=== PATIENT | female | born 1970 | race African-American/Black ===

== ENCOUNTER → 2019-10-22 | Outpatient (CLI) | payer MEDICARE, OTHER ==
[~2019-10-22] MED LIST: AMILORIDE HCL5 MG PO; ASPIRIN81 MG PO; ATORVASTATIN CA10 MG PO; BIOTIN800 MCG PO; CALCIUM CARBON500 MG PO; CLONIDINE HCL0.1 MG PO; FLUCONAZOLE100 MG PO; FOLIC ACID PO; GAS RELIEF80 MG PO; LINZESS290 MCG PO; MECLIZINE HCL12.5 MG PO; METHOTREXATE2.5 MG PO; METOCLOPRAM5 MG/5 ML PO; MIRALAX17 GM PO; MULTIVITAMINS1 EAC7 PO; NAPROXEN500 M1 PO; NEXIUM20 MG PO; PLAQUENIL200 MG PO; POTASSIUM CHLO10 ME1 PO; PREDNISONE20 MG PO; PROBIOTIC & AC1 EACH PO; PROMETHAZINE HC25 M1 PO; ROBAXIN-750750 MG PO; SINGULAIR10 MG PO; SLOW-MAG64 MG PO; SPIRONOLACTONE25 MG PO; STOOL SOFTENER50 MG PO; VITAMIN B 12 PO
--- NOTE | 2019-10-22 11:48 | Diagnostic Imaging Report ---
EXAM: CHEST 2 VIEWS DATE: 10/22/2019 11:24 AM INDICATION: Gallstone, preoperative evaluation COMPARISON: None FINDINGS: Implanted cardiac monitoring devices noted overlying the left lower thorax. The trachea is midline. The lungs are symmetrically expanded without evidence for large focal consolidation, pneumothorax, or significant pleural effusion. The cardiomediastinal silhouette and pulmonary vasculature are within normal limits. No acute osseous abnormality is identified. The surrounding soft tissues are unremarkable. IMPRESSION: No acute cardiopulmonary process identified. Signed by: Dr. Wale Mendes MD on 10/22/2019 11:45 AM
== END ==
LOC: RAD 05:00 → EDSTATUS 10-27 10:00 → EDBD 10-27 10:00
PROVIDERS: ATTEND Surgery
DX: Z01.818 Encounter for other preprocedural examination (principal); K81.9 Cholecystitis, unspecified; Z11.59 Encounter for screening for other viral diseases
CPT/HCPCS: 71046; U0002

== ENCOUNTER → 2019-12-08 | Day surgery (SDC) | payer MEDICARE ==
[~2019-12-08] MED LIST changes: +BUPIVACAINE 0.25% 30ML SDV INJ ONE; +DEXAMETHASONE SOD PHOS INJ 4 MG/ML VIAL ONE; +EPHEDRINE SULFATE INJ 50 MG/ML VIAL ONE; +FENTANYL CITRATE/PF 100MCG/2 ML INJ ONE; +GLYCOPYRROLATE INJ 0.2 MG/ML VIAL ONE; +HYDRALAZINE HCL 20 MG/ML VIAL ONE; +HYDROMORPHONE 1MG/1ML INJ ONE; +KETOROLAC TROMETHAMINE 30 MG/ML VIAL ONE; +LEVOFLOXACIN 500MG/D5W 100ML 100 ML IV ONE; +LIDOCAINE HCL 2% JELLY 5 ML TUBE ONE; +LIDOCAINE HCL 2% LOCAL INJ 5 ML SDV VIAL INJ ONE; +MIDAZOLAM HCL 2 MG/2 ML VIAL ONE; +NEOSTIGMINE 1 MG/ML 10ML VIAL ONE; +ONDANSETRON HCL INJ 2MG/ML 2ML 2 MG/ML VIAL ONE; +PROPOFOL IV EMULSION 10 MG/ML 20 ML VIAL ONE; +ROCURONIUM BROMIDE 10 MG/ML 5ML VIAL IV ONE; +SEVOFLURANE INHAL SOLN 250 ML PEN BTL ONE
[2019-12-08 09:05] LABS: BASOPHILS % 0.5 % (0.0-1.0); EOSINOPHILS # (AUTO) 0.2 (0.0-0.4); EOSINOPHILS % 1.7 % (0.0-6.0); HEMATOCRIT 40.7 % (34.2-44.1); HEMOGLOBIN 13.2 g/dL (12.0-16.0); LYMPHOCYTES # (AUTO) 3.2 (1.0-3.2); LYMPHOCYTES % 36.2 % (18.0-39.1); MEAN CORPUSCULAR HEMOGLOBIN 28.9 pg (28-32); MEAN CORPUSCULAR HGB CONC 32.4 g/dL (31-35); MEAN CORPUSCULAR VOLUME 89.3 fL (81-99); MONOCYTES # (AUTO) 0.6 (0.2-0.8); MONOCYTES % 6.5 % (4.4-11.3); NEUTROPHILS # (AUTO) 4.8 (2.1-6.9); NEUTROPHILS % 54.8 % (38.7-80.0); PLATELET COUNT 418 x10e3/uL (140-360); RED BLOOD COUNT 4.56 x10e6/uL (3.6-5.1); RED CELL DISTRIBUTION WIDTH 13.1 % (11.7-14.4)
[2019-12-08 09:22] LABS: ANION GAP 11.9 mmol/L (8-16); BLOOD UREA NITROGEN 14 mg/dL (7-26); BUN/CREATININE RATIO 17 (6-25); CALCIUM 9.6 mg/dL (8.4-10.2); CARBON DIOXIDE 30 mmol/L (22-29); CHLORIDE 104 mmol/L (98-107); CREATININE, SERUM 0.81 mg/dL (0.57-1.11); EST GLOMERULAR FILTRATION RATE > 60 ML/MIN (60-); GLUCOSE 91 mg/dL (74-118); POTASSIUM 3.9 mmol/L (3.5-5.1); SODIUM 142 mmol/L (136-145)
--- NOTE | 2019-12-08 12:43 | Operative Report ---
DATE OF PROCEDURE: 12/08/2019 SURGEON: Elmer Beach MD PREOPERATIVE DIAGNOSIS: Cholecystitis. POSTOPERATIVE DIAGNOSIS: Cholecystitis. PREOPERATIVE INDICATION: Treat disease, prevent complications related to biliary disease. PROCEDURE: Laparoscopic cholecystectomy. ANESTHESIA: General. RESPIRATORY CARE ASSISTANT: Sanjiv Delgadillo, surgical endoscopist (needed due to complexity of case). FLUIDS: As per anesthesia. ESTIMATED BLOOD LOSS: 10 mL. DRAINS: None. COMPLICATIONS: None. SPECIMENS: Gallbladder. GRAFTS: None. FINDINGS: Gallbladder wall thickening. PROCEDURE IN DETAIL: The patient was brought to the operating room, was intubated under general endotracheal anesthesia. She was sterilely prepped and draped in the usual fashion. She was positioned supine, both arms were abducted and all pressure points were appropriately padded. She was sterilely prepped and draped in the usual fashion. A preprocedure pause was performed identifying the patient, use of perioperative antibiotics, intended procedure, and staff surgeon. Access was gained via a 5 mm left subcostal incision using a Veress needle. The abdomen was insufflated, three additional trocars were placed in standard positions. The gallbladder was grasped at the fundus and retracted cephalad and the peritoneal lining over the gallbladder, and was able to dissect out the cystic duct and obtained a critical view of dissection. The cystic duct was clipped twice on the stay side, once on the specimen side and divided with scissors. There were multiple branches of the cystic artery, which were electrocoagulated with the L-hook cautery. We then excised the gallbladder off the gallbladder fossa using the L-hook cautery. There was mild spillage of bile during our dissection, which was irrigated and suctioned off and the gallbladder was then removed through the periumbilical port site using the EndoCatch bag. The port site was closed with 0 Vicryl sutures using a Devin Bañuelos technique. We then again irrigated the peritoneal cavity dry, verified hemostasis, and desufflated the abdomen. The trocars were removed. Incision sites were closed with 4-0 Monocryl suture in a subcuticular fashion. Dermabond dressings were applied. A 0.25% bupivacaine was used both at the preperitoneal incision sites. The patient tolerated the procedure well. Type of wound was type 2, contaminated. All surgical sponge and instrument counts were correct. MD DAVIDSON Herman/LJ /[id number]
[2019-12-08 13:10] VITALS: BP 130/79
== END | disposition home or self-care (01) ==
LOC: OR 08:15
PROVIDERS: ATTEND Surgery
DX: K81.1 Chronic cholecystitis (principal); M06.9 Rheumatoid arthritis, unspecified; M32.9 Systemic lupus erythematosus, unspecified; I10 Essential (primary) hypertension; Z88.6 Allergy status to analgesic agent; Z88.0 Allergy status to penicillin; Z88.2 Allergy status to sulfonamides; E78.5 Hyperlipidemia, unspecified; Z01.812 Encounter for preprocedural laboratory examination; Z11.59 Encounter for screening for other viral diseases; Z79.82 Long term (current) use of aspirin
CPT/HCPCS: 36415; 47562; 80048; 85025; 88304; J0360; J1100; J1170; J1885; J1956; J2001 ×2; J2250; J2405; J2704; J2710; J3010; U0002